=== PATIENT | female | born 1930 | race Caucasian/White ===

== ENCOUNTER 2017-02-16 14:27 | Inpatient (IN) | payer MEDICARE, MEDICAID ==
[~2017-02-16] VITALS: Ht 157.5 cm; Wt 55.3 kg
[2017-02-16] MEDS ORDERED: ARICEPT PO (14:43)
[2017-02-16] MEDS ORDERED: ALENDRONATE PO (14:43)
[2017-02-16] MEDS ORDERED: PRAVACHOL PO (14:43)
[2017-02-16 15:05] LABS: CARBON DIOXIDE 30 mmol/L (21-32); CHLORIDE 104 mmol/L (98-107); CREATININE 1.4 mg/dL (0.6-1.3); GLUCOSE 103 mg/dL (74-106); POTASSIUM 4.6 mmol/L (3.5-5.1); UREA NITROGEN, BLOOD 22 mg/dL (7-18)
[2017-02-16 15:06] LABS: BASOPHILS # (AUTO) 0.1 K/uL (0.0-8.0); BASOPHILS % (AUTO) 0.6 % (0.0-2.0); EOSINOPHILS # (AUTO) 0.3 K/uL (0.0-0.7); EOSINOPHILS % (AUTO) 3.4 % (0.0-7.0); HEMATOCRIT 37.6 % (37-47); HEMOGLOBIN 12.6 G/DL (12.0-16.0); LYMPHOCYTES # (AUTO) 1.9 K/UL (0.8-4.8); LYMPHOCYTES % (AUTO) 21.4 % (20.5-51.5); MEAN CORPUSCULAR HEMOGLOBIN 29.7 UUG (27.0-31.0); MEAN CORPUSCULAR HGB CONC 33 g/dL (32.0-37.0); MONOCYTES # (AUTO) 0.8 K/UL (0.1-1.30); MONOCYTES % (AUTO) 8.6 % (0.0-11.0); NEUTROPHILS # (AUTO) 5.7 K/UL (1.8-8.9); PLATELET COUNT (AUTO) 479 K/UL (150-450); RED BLOOD CELL COUNT(AUTO) 4.23 MIL/UL (4.2-5.4); WHITE BLOOD COUNT (AUTO) 8.8 K/UL (4.0-11.2)
[2017-02-16 15:11] LABS: ALANINE AMINOTRANSFERASE 16 U/L (14-59); ALKALINE PHOSPHATASE 93 U/L (50-136); ASPARTATE AMINOTRANSFERASE 16 U/L (15-37); BILIRUBIN,DIRECT 0.1 mg/dL (0.0-0.2); BILIRUBIN,TOTAL 0.3 mg/dL (0.2-1.0); TOTAL PROTEIN, SERUM 7.7 g/dL (6.4-8.2)
[2017-02-16 15:33] LABS: ACETAMINOPHEN < 2.0 ug/mL (10-30)
[2017-02-16 16:03] LABS: ETHANOL < 3 MG/DL (0-0)
--- NOTE | 2017-02-16 16:04 | NUR ---
Pt was seen by for psych eval. Labs, xray and EKG done. I called Moises PAGE for eval.
--- NOTE | 2017-02-16 17:01 | NUR ---
AWAITING ARRIVAL OF CAMILO YING FOR EVALUATION. PT IS AWAKE AND ALERT WITH NO COMPLAINTS.
--- NOTE | 2017-02-16 17:32 | NUR ---
pATIENT IS SITTING UP EATING A SANDWICH AND DRINKING JUICE.
--- NOTE | 2017-02-16 18:15 | NUR ---
KEVON CRANE, EMERGENCY SPECIALIST HERE FOR EVAL
--- NOTE | 2017-02-16 18:45 | NUR ---
REPORT GIVEN TO KENYETTA MANLEY IN [place].
[2017-02-16] MEDS ORDERED: ACETAMINOPHEN 325 MG TABLET PO PRN (20:15)
[2017-02-16] MEDS ORDERED: MAG HYDROX/AL HYDROX/SIMETH 30 ML LIQUID UDC PO PRN (20:15)
--- NOTE | 2017-02-16 21:00 | NUR ---
PATIENT CAME FROM HOME, ALERT, ORIENTED X 1, CONFUSED. STATED THAT HER DAUGHTER BROUGHT HER HERE BECAUSE SHE WILL GET ALL HER MONEY. SHE REPEATS SAME QUESTIONS OVER AND OVER EVEN THOUGH ANSWERS WERE GIVEN. NEEDS REDIRECTION. UNABLE TO PROVIDE HISTORY. BODY ASSESSMENT DONE. NO AGITATION NOTED AT THIS TIME. ABLE TO TAKE SHOWER. SAFETY INITIATED. WILL CONTINUE TO MONITOR
--- NOTE | 2017-02-17 06:10 | NUR ---
ABLE TO SLEEP FOR A TOTAL OF 7 HOURS. WITH PERIODS OF CONFUSION, NEEDS REDIRECTION. NEEDS ATTENDED. NO ACUTE DISTRESS. CLOSE MONITORING D/T FALL RISK
[2017-02-17 07:30] VITALS: BP 128/55
[2017-02-17] MEDS ORDERED: ALENDRONATE 70 MG PO SCH (15:00)
[2017-02-17 16:00] VITALS: BP 112/55
[2017-02-17 20:40] VITALS: BP 111/54
[2017-02-17] MEDS: ATORVASTATIN 10 MG TABLET PO SCH (20:50)
[2017-02-17] MEDS: MIRTAZAPINE 15 MG TABLET PO SCH (20:51)
[2017-02-17] MEDS ORDERED: QUETIAPINE FUMARATE 25 MG TABLET PO SCH (21:00)
[2017-02-18] MEDS ORDERED: PRAVACHOL 10 MG PO SCH (09:00)
--- NOTE | 2017-02-18 09:15 | NUR ---
GPS.RN- PATIENT VERBALIZING SHE WANTS TO TO PHYSICAL THERAPY STAFF, NO PLAN VERBALIZED
[2017-02-18] MEDS: QUETIAPINE FUMARATE 25 MG TABLET PO SCH ×3 (12:45→17:11)
--- NOTE | 2017-02-18 12:53 | NUR ---
Initial discharge instructions: The patient has been residing at home [[address] [place] [address]] however per daughter's request, the patient will be referred to a SNF. Per daughter, she is working with [facility] to aid in finding placement for the patient. SW will speak with patient, family, and MD regarding most appropriate discharge plans. SS will form a safe and proper discharge.
[2017-02-18] MEDS: ATORVASTATIN 10 MG TABLET PO SCH ×2 (21:00→21:50)
[2017-02-18] MEDS: MIRTAZAPINE 15 MG TABLET PO SCH ×2 (21:00→21:50)
--- NOTE | 2017-02-19 06:31 | NUR ---
NSG/GPS Patient first observed lying in bed appeared to be asleep. Patient approached by staff for hs medication, patient alert, confused, disorganized unable to speak coherently. Patient angry towards staff refused medication and became increasingly agitated. Patient continues to require observation for safety. Slept a total of ten hours.
[2017-02-19 07:30] VITALS: BP 138/65
[2017-02-19] MEDS: QUETIAPINE FUMARATE 25 MG TABLET PO SCH ×3 (08:41→17:30)
[2017-02-19 16:00] VITALS: BP 93/58
[2017-02-19] MEDS: ATORVASTATIN 10 MG TABLET PO SCH ×2 (20:38→20:44)
[2017-02-19] MEDS: MIRTAZAPINE 15 MG TABLET PO SCH ×2 (20:38→20:44)
[2017-02-20] MEDS: ALENDRONATE SODIUM 70 MG TABLET PO SCH (06:00)
[2017-02-20] MEDS: QUETIAPINE FUMARATE 25 MG TABLET PO SCH ×3 (08:12→18:38)
[2017-02-20 09:47] VITALS: BP 134/69
[2017-02-20 16:24] VITALS: BP 129/68
[2017-02-20 20:17] VITALS: BP 112/60
[2017-02-20] MEDS: MIRTAZAPINE 15 MG TABLET PO SCH (20:29)
[2017-02-20] MEDS: ATORVASTATIN 10 MG TABLET PO SCH (20:29)
[2017-02-20] MEDS: TEMAZEPAM 7.5 MG CAPSULE PO PRN (22:13)
[2017-02-21 08:01] VITALS: BP 145/86
[2017-02-21] MEDS: QUETIAPINE FUMARATE 25 MG TABLET PO SCH ×3 (08:54→16:36)
[2017-02-21 15:05] VITALS: BP 133/77
[2017-02-21] MEDS: MIRTAZAPINE 15 MG TABLET PO SCH (20:02)
[2017-02-21] MEDS: ATORVASTATIN 10 MG TABLET PO SCH (20:02)
[2017-02-21 20:13] VITALS: BP 97/52
[2017-02-22 07:30] VITALS: BP 128/66
[2017-02-22] MEDS: QUETIAPINE FUMARATE 25 MG TABLET PO SCH ×3 (09:07→16:58)
[2017-02-22 15:17] VITALS: BP 108/58
[2017-02-22] MEDS: CLONAZEPAM 0.5 MG TABLET PO PRN (16:58)
[2017-02-22] MEDS: ATORVASTATIN 10 MG TABLET PO SCH (20:14)
[2017-02-22] MEDS: MIRTAZAPINE 15 MG TABLET PO SCH (20:14)
[2017-02-22 20:29] VITALS: BP 127/60
[2017-02-22] MEDS: TEMAZEPAM 7.5 MG CAPSULE PO PRN (21:57)
[2017-02-22 22:25] LABS: *BILIRUBIN,URIN NEGATIVE (NEGATIVE); *BLOOD, URINE NEGATIVE (NEGATIVE); *CLARITY,URINE CLEAR (CLEAR); *COLOR,URINE YELLOW (YELLOW); *KETONES,URINE NEGATIVE (NEGATIVE); *PROTEIN,URINE NEGATIVE (NEGATIVE); *UROBILINOGEN,URINE 0.2 E.U./dl (NORMAL); LEUKOCYTE ESTERASE ,URINE NEGATIVE (NEGATIVE); NITRITE, URINE NEGATIVE (NEGATIVE); PH,URINE 5.5 (5.0-8.0); UGLUCOSE NEGATIVE (NEGATIVE)
[2017-02-22 22:33] LABS: SQUAMOUS EPITHELIAL CELL,UR FEW /HPF (NONE SEEN); WBC,URINE 0-3 /HPF (0-3)
--- NOTE | 2017-02-23 01:22 | NUR ---
GPS: Pt.still awake at this time,restless,irritable and easily agitated when being re-directed. Restoril 7.5mg given earlier but ineffective up to now. Refused Klonopin 0.5mg when offered by staff despite numerous attempts. Pt.is confused,disoriented and mumbling to self a lot tonight. Attempted to get out of bed few times already for no reason. Safety emphasized. Bed alarm on for safety. Assisted to the bathroom prn. Will continue to monitor.
[2017-02-23] MEDS: CLONAZEPAM 0.5 MG TABLET PO PRN ×2 (01:40→10:45)
[2017-02-23 07:30] VITALS: BP 136/73
[2017-02-23] MEDS: QUETIAPINE FUMARATE 25 MG TABLET PO SCH ×3 (08:17→18:20)
--- NOTE | 2017-02-23 09:02 | NUR ---
Customer Sales Service Manager JAMAAL spoke with the patient's daughter Payton Soliz on Tuesday02/18/17 regarding the patient's discharge plan. Payton stated that she had been working with [facility] prior to the patient's admissions to the hospital. She stated that they only gave her three options for placement, one of which was [facility]. Per Payton, she toured [facility] and did not like the facility. She stated that [facility] told her these are the only options and that there are no other facilities that they can refer her to. Payton asked the SW if she can provide her with additional referrals. SW suggested to Payton that she contact [facility] to see if they are able to provide her with additional referrals. Payton stated that she will reach out to them and get back to the director social service. JAMAAL spoke with Payton again on 02/21/17, and Payton stated that [facility] are still not providing her with other SNF referrals and stated that her only options are among the three places that they provided her with. Payton stated that she is very unhappy with [facility] and that they have sabotaged her mother's placement and had made her promises that they didn't keep. Payton requested that the patient's PCP give her a call and provide her with his assessment and recommendations. JAMAAL informed Dr. Capone and he stated that he called Payton and left her a voicemail and but not received a call back from her. He stated that he will follow-up with Payton again. Spoke with Payton yesterday, 02/22/17, and she requested that the SW faxes referrals to different facilities in the [facility] so that she can tour the multiple facilities and make a decision. Per Payton's request, JAMAAL has faxed: 1.) [facility] 2.) [facility] 3.) [facility] 4.) [facility] 5.) [facility] 6.) [facility] 7.) [facility] 8.) [facility] 9.) [facility] 10.) [facility] SW awaiting calls back from the above mentioned facilities. Addendum: 02/23/17 at 0931 by HEMANTH HINTON The patient was also referred to: [facility]
[2017-02-23 16:00] VITALS: BP 135/68
[2017-02-23 20:01] VITALS: BP 142/70
[2017-02-23] MEDS: ATORVASTATIN 10 MG TABLET PO SCH (20:57)
[2017-02-23] MEDS: MIRTAZAPINE 15 MG TABLET PO SCH (20:57)
[2017-02-24 07:30] VITALS: BP 147/73
[2017-02-24] MEDS: QUETIAPINE FUMARATE 25 MG TABLET PO SCH ×3 (09:37→17:51)
[2017-02-24 16:00] VITALS: BP 145/69
[2017-02-24 20:11] VITALS: BP 104/64
[2017-02-24] MEDS: ATORVASTATIN 10 MG TABLET PO SCH (20:27)
[2017-02-24] MEDS: MIRTAZAPINE 15 MG TABLET PO SCH (20:27)
[2017-02-25 07:30] VITALS: BP 117/66
[2017-02-25] MEDS: QUETIAPINE FUMARATE 25 MG TABLET PO SCH ×3 (09:59→17:12)
[2017-02-25] MEDS: MAGNESIUM HYDROXIDE 30 ML LIQUID UDC PO PRN (10:39)
--- NOTE | 2017-02-25 10:39 | NUR ---
GPS/RN- PATIENT OFFERED PRN FOR CONSTIPATION, REFUSED, ARGUMENTATIVE PARANOID AND SUSPICIOUS, IRRITABLE
[2017-02-25 15:21] VITALS: BP 109/54
--- NOTE | 2017-02-25 18:34 | NUR ---
PATIENT STILL YELLING AND NON COMPLIANT REFUSES TO TAKE SEROQUEL TIMES ONE, POOR SELF CONTROL AND RE DIRECTION NOTED . CONTINUE TO MONITOR FOR FALLS
[2017-02-25 20:03] VITALS: BP 133/62
[2017-02-25] MEDS: MIRTAZAPINE 15 MG TABLET PO SCH (20:11)
[2017-02-25] MEDS: ATORVASTATIN 10 MG TABLET PO SCH (20:11)
[2017-02-25] MEDS: CLONAZEPAM 0.5 MG TABLET PO PRN (23:26)
[2017-02-26] MEDS: TEMAZEPAM 7.5 MG CAPSULE PO PRN (01:02)
[2017-02-26 07:30] VITALS: BP 162/80
[2017-02-26] MEDS: QUETIAPINE FUMARATE 25 MG TABLET PO SCH ×3 (10:12→17:01)
[2017-02-26 15:00] VITALS: BP 116/65
[2017-02-26 20:10] VITALS: BP 129/61
[2017-02-26] MEDS: MIRTAZAPINE 15 MG TABLET PO SCH (20:57)
[2017-02-26] MEDS: ATORVASTATIN 10 MG TABLET PO SCH (20:57)
[2017-02-27] MEDS: ALENDRONATE SODIUM 70 MG TABLET PO SCH (06:30)
[2017-02-27] MEDS: MAGNESIUM HYDROXIDE 30 ML LIQUID UDC PO PRN ×2 (07:05→18:46)
[2017-02-27 07:30] VITALS: BP 140/70
[2017-02-27] MEDS: QUETIAPINE FUMARATE 25 MG TABLET PO SCH ×3 (08:30→17:28)
[2017-02-27 15:40] VITALS: BP 141/69
--- NOTE | 2017-02-27 18:49 | NUR ---
GPS: Nursing Notes: Refusing MOM: Patient refusing her MOM, abdomen is soft and nontender, (+) abdominal sound on four quadrants, denies any pain or discomfort, patient did not have a BM in 4 days, patient stated "I will go when I need to go.. The doctor can take the MOM if he need it... I am fine..", continue with treatment plan.
[2017-02-27 20:03] VITALS: BP 113/55
[2017-02-27] MEDS: MIRTAZAPINE 15 MG TABLET PO SCH (20:05)
[2017-02-27] MEDS: ATORVASTATIN 10 MG TABLET PO SCH (20:05)
--- NOTE | 2017-02-28 06:30 | NUR ---
Per [facility] records, Patient has not have a BM in 5 days. PRN MOM was offered; however, patient refused at this time. Patient denies pain or discomfort. Abdomen is soft, non-tender and non-distended. Normal bowel sound heard in all 4 quadrant. Pt. does not remember when she had a BM. we will continue to offer MOM
[2017-02-28 07:30] VITALS: BP 121/67
--- NOTE | 2017-02-28 11:16 | NUR ---
Charge Preparation Technician 1.) [facility] - not able to accept 2.) [facility] - accepted 3.) [facility] - awaiting response 4.) [facility] - awaiting response 5.) [facility] - awaiting response 6.) [facility] - not able to accept 7.) [facility] - awaiting response 8.) [facility] - awaiting response 9.) [facility] - accepted 10.) [facility] - not able to accept 11.) [facility] - awaiting response 12.) [facility] - accepted Spoke with the patient's daughter Payton on Tuesday (02/25/17) who stated that she has toured the facilities and would like for the patient to go to [facility]. She stated that she does not want to work with [facility] and that she was unhappy with their service.
--- NOTE | 2017-02-28 11:21 | NUR ---
DC Note: The patient will be discharged today to [facility] ([facility]) [[address], [place] [address] ] via ambulance at 1:00 pm. Spoke with Madai Diamond at the facility who stated that they will be accepting the patient today. The patient will be going to room 3C. Spoke with the patient's daughter Payton Soliz and she is aware and agreeable with the discharge plan. The patient will follow-up at the facility with blast furnace tender Dr. Kye Kidd and psychiatrist Dr. Patrick Hussein.
[2017-02-28] MEDS: QUETIAPINE FUMARATE 25 MG TABLET PO SCH ×2 (11:57→13:00)
--- NOTE | 2017-02-28 13:46 | NUR ---
0900 am dose of seroquel 25 mg given late , patient was sound asleep. 1300 seroquel dose not given too closed.
--- NOTE | 2017-02-28 14:00 | NUR ---
1330 CALLED [facility] SPOKE TO KENYETTA COWART REPORT GIVEN REGARDING PATIENT MEDICAL AND MENTAL CONDITION, DIAGNOSIS AND MEDICATIONS TO CONTINUE UPON DISCHARGED TO THE HOSPITAL- RN VERBALIZED UNDERSTANDING. 1635 PICKED UP BY AMBULANCE AND TRANSPORTED PATIENT TO SNF STABLE CONDITION. pATIENT DENIES SI/HI. NO HALLUCINATIONS/ NO DELUSIONS NOTED.
[2017-02-28 16:33] VITALS: BP 113/69
== END 2017-02-28 16:35 | DRG 885 ==
LOC: ER 14:28 → GPS 19:01
PROVIDERS: ADMIT Psychiatry & Neurology Psychiatry; ATTEND Internal Medicine
PROC: 0HDNXZZ Extraction of Left Foot Skin, External Approach (ICD-10-PCS; principal; 2017-02-20)
PROC: 0HDMXZZ Extraction of Right Foot Skin, External Approach (ICD-10-PCS; 2017-02-20)
DX: F33.3 Major depressive disorder, recurrent, severe with psychotic symptoms (principal); N18.9 Chronic kidney disease, unspecified; R29.6 Repeated falls; B35.1 Tinea unguium; L60.3 Nail dystrophy; L84 Corns and callosities; E78.5 Hyperlipidemia, unspecified; Z91.14 Patient's other noncompliance with medication regimen; R62.7 Adult failure to thrive
CPT/HCPCS: 36415; 71010; 85025; 87086; 93005; 97116; 97161; 97530; A4663; G0480; G0480-TC